=== PATIENT | male | born 1975 | race Hispanic/Latino ===

== ENCOUNTER 2018-04-01 12:46 | Emergency (ER) | payer BC, OTHER ==
[2018-04-01 13:07] LABS: BASOPHILS % (AUTO) 0.3 % (0.0-5.0); EOSINOPHILS % (AUTO) 0.2 % (0.0-8.0); LYMPHOCYTES % (AUTO) 18.8 % (21.0-51.0); MEAN CORPUSCULAR HEMOGLOBIN 30.6 pg (27.0-33.0); MEAN CORPUSCULAR HGB CONC 35.1 g/dL (32.0-36.0); MEAN CORPUSCULAR VOLUME 87.2 fL (79-99); MONOCYTES % (AUTO) 6.5 % (3.0-13.0); NEUTROPHILS % (AUTO) 74.2 % (40.0-77.0); PLATELET COUNT (AUTO) 267 K/uL (130-400); RED BLOOD CELL COUNT(AUTO) 5.04 MIL/uL (4.50-6.20); RED CELL DISTRIBUTION WIDTH 12.9 % (11.0-15.5); WHITE BLOOD COUNT (AUTO) 8.6 K/uL (4.8-10.8)
[2018-04-01 13:17] LABS: POTASSIUM 3.4 mmol/L (3.5-5.1)
[2018-04-01 13:18] LABS: INR 1.08 (0.85-1.15); PARTIAL THROMBOPLASTIN TIME 27.1 SEC (26.3-35.5); PROTHROMBIN TIME 11.3 SEC (9.6-11.6)
[2018-04-01 13:33] LABS: ALBUMIN 4.2 g/dL (3.5-5.0); BILIRUBIN,TOTAL 0.6 mg/dL (0.2-1.0); CREATINE KINASE MB 1.8 ng/mL (0.5-3.6); TOTAL PROTEIN, SERUM 8.4 g/dL (6.0-8.3)
== END 2018-04-01 14:37 | disposition home or self-care (01) ==
LOC: EDH 12:46
DX: R07.89 Other chest pain (principal); M41.9 Scoliosis, unspecified
CPT/HCPCS: 36415; 71045; 80053; 82550; 82553; 84484; 85025; 85610; 85730; 93005

== ENCOUNTER 2022-03-23 18:37 | Emergency (ER) | payer OTHER ==
[~2022-03-23] VITALS: Ht 175.3 cm; Wt 79.4 kg
[2022-03-23 19:10] LABS: BASOPHILS % (AUTO) 0.4 % (0.0-5.0); EOSINOPHILS % (AUTO) 0.6 % (0.0-8.0); HEMATOCRIT 42.9 % (42-54); LYMPHOCYTES % (AUTO) 24.9 % (21.0-51.0); MEAN CORPUSCULAR HEMOGLOBIN 29.2 pg (27.0-33.0); MEAN CORPUSCULAR HGB CONC 33.8 g/dL (32.0-36.0); MEAN CORPUSCULAR VOLUME 86.3 fL (79-99); MONOCYTES % (AUTO) 8.8 % (3.0-13.0); NEUTROPHILS % (AUTO) 64.9 % (40.0-77.0); PLATELET COUNT (AUTO) 278 K/uL (130-400); RED BLOOD CELL COUNT(AUTO) 4.97 MIL/uL (4.50-6.20); RED CELL DISTRIBUTION WIDTH 12.3 % (11.0-15.5); WHITE BLOOD COUNT (AUTO) 8.3 K/uL (4.8-10.8)
[2022-03-23 19:12] LABS: POTASSIUM 3.6 mmol/L (3.5-5.1)
[2022-03-23 19:22] LABS: ALBUMIN 3.9 g/dL (3.5-5.0); BILIRUBIN,TOTAL 0.4 mg/dL (0.2-1.0); TOTAL PROTEIN, SERUM 7.6 g/dL (6.0-8.3)
[2022-03-23 20:20] LABS: ERYTHROCYTE SEDIMENTATION RATE 5 MM/HR (0-15)
[2022-03-23 21:27] LABS: APPEARANCE,URINE Clear (CLEAR); BILIRUBIN,URINE Negative (NEGATIVE); COLOR,URINE Yellow (YELLOW); GLUCOSE, URINE (UA) Negative (NEGATIVE); KETONES,URINE Trace mg/dL (NEGATIVE); LEUKOCYTE ESTERASE ,URINE Negative (NEGATIVE); NITRATE,URINE Negative (NEGATIVE); OCCULT BLOOD,URINE Negative (NEGATIVE); PROTEIN,URINE Negative (NEGATIVE)
[2022-03-23 21:35] LABS: AMPHET/METH SCREEN,URINE NEGATIVE (NEGATIVE); BARBITURATE SCREEN, URINE NEGATIVE (NEGATIVE); BENZODIAZEPINES SCREEN,URINE NEGATIVE (NEGATIVE); CANNABINOID SCREEN,URINE POSITIVE (NEGATIVE); COCAINE SCREEN,URINE NEGATIVE (NEGATIVE); OPIATE SCREEN,URINE NEGATIVE (NEGATIVE); PHENCYCLIDINE SCREEN,URINE NEGATIVE (NEGATIVE)
[2022-03-23 22:30] LABS: PHOSPHORUS 3.9 mg/dL (2.5-4.9)
[2022-03-23 23:08] LABS: GLUCOSE, CSF 60 mg/dL (40-70); TOTAL PROTEIN, CSF 72 mg/dL (15-45)
[2022-03-23 23:09] LABS: CRP QUANTITATIVE < 2.00 mg/L (0.00-9.0)
[2022-03-23 23:29] LABS: CSF TUBE NUMBER 1
[2022-03-23 23:30] LABS: APPEARANCE,CSF CLEAR (CLEAR); COLOR,CSF COLORLESS (COLORLESS); RED BLOOD CELL1,CSF 1 CMM (0-0); WHITE BLOOD CELL1,CSF 16 CMM (0-5)
[2022-03-23 23:34] LABS: LYMPHOCYTES1,CSF 84 %; MONOCYTES1,CSF 3 %; NEUTROPHILS1,CSF 13 %
[2022-03-24 05:04] VITALS: BP 142/83
== END 2022-03-24 06:14 | disposition short-term general hospital (02) ==
LOC: EDH 18:37
DX: G61.0 Guillain-Barre syndrome (principal); R53.1 Weakness; Z20.822 Contact with and (suspected) exposure to COVID-19; I10 Essential (primary) hypertension
CPT/HCPCS: 36415 ×2; 62270; 80053; 80305; 81003; 82607; 82746; 82784; 82945; 83735; 84100; 84157; 84484; 85025; 85651; 86140; 87071; 87205; 87635; 89051; 93005; 99285; C9803

== ENCOUNTER 2023-10-07 06:54 | Observation (INO) | payer BC ==
[2023-10-02 14:47] VITALS: BP 133/89; PULSE 61; RESP 17
[2023-10-02 14:50] LABS: BASOPHILS # (AUTO) 0.03 K/uL (0.00-0.20); BASOPHILS % (AUTO) 0.4 % (0.0-5.0); EOSINOPHILS # (AUTO) 0.09 K/uL (0.00-0.70); EOSINOPHILS % (AUTO) 1.3 % (0.0-8.0); HEMATOCRIT 42.5 % (42-54); IMMATURE GRANULOCYTE ABSOLUTE 0.03 K/uL (0-1); LYMPHOCYTES # (AUTO) 2.8 K/uL (1.0-4.8); LYMPHOCYTES % (AUTO) 42.4 % (21.0-51.0); MEAN CORPUSCULAR HEMOGLOBIN 30.1 pg (27.0-33.0); MEAN CORPUSCULAR HGB CONC 33.4 g/dL (32.0-36.0); MEAN CORPUSCULAR VOLUME 90.2 fL (79-99); MONOCYTES # (AUTO) 0.5 K/uL (0.1-1.0); MONOCYTES % (AUTO) 8.1 % (3.0-13.0); NEUTROPHILS # (AUTO) 3.2 K/uL (1.8-7.7); NEUTROPHILS % (AUTO) 47.4 % (40.0-77.0); PLATELET COUNT (AUTO) 254 K/uL (130-400); RED BLOOD CELL COUNT(AUTO) 4.71 MIL/uL (4.50-6.20); RED CELL DISTRIBUTION WIDTH 12.3 % (11.0-15.5); WHITE BLOOD COUNT (AUTO) 6.7 K/uL (4.8-10.8)
[2023-10-02 15:00] LABS: POTASSIUM 4.3 mmol/L (3.5-5.1)
[~2023-10-07] VITALS: Ht 177.8 cm; Wt 83.5 kg
[2023-10-07] VITALS (30 sets, daily range): BP systolic 101–151; BP diastolic 55–96; PULSE 72–115; RESP 11–22; O2SAT 98
[~2023-10-07 06:54] MED LIST: ALPR1TAB2 PO; HYDR-4068 PO; RABE20TA30 PO
[2023-10-07] MEDS ORDERED: LACTATED RINGERS 1000ML 1,000 ML IV ONE (08:06)
[2023-10-07] MEDS ORDERED: LOSA50TA64 PO (08:16)
[2023-10-07] MEDS: CEFAZOLIN SODIUM 2 GM VIAL ONE ×2 (08:17→11:07)
[2023-10-07] MEDS ORDERED: DEXAMETHASONE SOD PHOSPHATE 10MG/ML 1ML VIAL ONE ×2 (09:30→09:59)
[2023-10-07] MEDS ORDERED: LIDOCAINE PF 100MG/5ML (2%) SYRINGE 5ML ONE (09:30)
[2023-10-07] MEDS ORDERED: SUCCINYLCHOLINE 200MG/10ML SYR ONE (09:30)
[2023-10-07] MEDS ORDERED: GLYCOPYRROLATE 1 MG/5 ML SYRINGE ONE (09:31)
[2023-10-07] MEDS ORDERED: PROPOFOL 10 MG/ML 20ML VIAL IV ONE (09:31)
[2023-10-07] MEDS ORDERED: MIDAZOLAM HCL 1 MG/ML 2ML VIAL ONE (09:31)
[2023-10-07] MEDS ORDERED: ONDANSETRON 4MG INJ ONE ×2 (09:31→14:19)
[2023-10-07] MEDS ORDERED: NEOSTIGMINE 5MG/5ML SYR IV ONE (09:31)
[2023-10-07] MEDS ORDERED: FENTANYL CITRATE PF 50 MCG/1 ML 2ML VIAL ONE (09:32)
[2023-10-07] MEDS ORDERED: ROCURONIUM 10MG/1ML SYR 10 MG/ML ML ONE ×3 (09:32→12:33)
[2023-10-07] MEDS ORDERED: FAMOTIDINE 20MG VIAL IV ONE (10:13)
[2023-10-07] MEDS ORDERED: BUPIVACAINE/PF 0.5% 30ML VIAL ONE (10:36)
[2023-10-07] MEDS ORDERED: FENTANYL CITRATE PF 50 MCG/1 ML 5ML AMP IV ONE ×2 (11:15→12:33)
[2023-10-07] MEDS ORDERED: ESMOLOL HCL 10 MG/ML 10 ML VIAL ONE (13:02)
[2023-10-07] MEDS ORDERED: MEPERIDINE-PF 25 MG/ML SYG ONE ×3 (13:52→14:26)
[2023-10-07] MEDS ORDERED: KETOROLAC 30MG VIAL (30MG/ML) ONE (14:19)
[2023-10-07] MEDS ORDERED: ACETAMINOPHEN 1,000 MG/100 ML VIAL IV ONE (14:26)
[2023-10-07] MEDS ORDERED: ALPRAZOLAM 0.5 MG TABLET PO PRN (14:30)
[2023-10-07] MEDS ORDERED: HYDROCODONE/ACETAMINOPHEN 7.5/325 MG 15 ML UDCUP PO PRN (14:30)
[2023-10-07] MEDS ORDERED: ONDANSETRON 4MG INJ IVP PRN (14:30)
[2023-10-07] MEDS ORDERED: MORPHINE 4 MG SYG IVP PRN (14:30)
[2023-10-07] MEDS ORDERED: PROCHLORPERAZINE 10MG/2ML INJ IV PRN (14:30)
[2023-10-07] MEDS ORDERED: KETOROLAC 30MG VIAL (30MG/ML) IV PRN (14:30)
[2023-10-07] MEDS ORDERED: HYDROCODONE/ACETAMINOPHEN 10/325 MG TAB PO PRN (14:30)
[2023-10-07] MEDS ORDERED: HYDRALAZINE 20MG/ML VIAL IV PRN (14:30)
[2023-10-07] MEDS ORDERED: SCOPOLAMINE HYDROBROMIDE 1 EACH ADH..PATCH TD ONE ×2 (14:30→16:21)
[2023-10-07] MEDS ORDERED: HYDROMORPHONE 1 MG INJ ONE (14:53)
[2023-10-07] MEDS: LACTATED RINGERS 1000ML 1,000 ML IV SCH ×2 (19:17→22:30)
[2023-10-07] MEDS ORDERED: FAMOTIDINE 20MG TAB PO SCH (20:00)
[2023-10-08] VITALS: BP 140/80; PULSE 89; RESP 18
[2023-10-08] MEDS: LACTATED RINGERS 1000ML 1,000 ML IV SCH (03:23)
[2023-10-08 04:00] VITALS: BP 143/83; PULSE 77; RESP 18
[2023-10-08 06:26] VITALS: PULSE 93; RESP 18; O2SAT 97
[2023-10-08 08:00] VITALS: BP 126/86; PULSE 78; RESP 20; O2SAT 98
[2023-10-08] MEDS: ENOXAPARIN SODIUM 30 MG/0.3 ML SQ SCH ×2 (08:59→12:48)
[2023-10-08 12:00] VITALS: BP 139/86; PULSE 78; RESP 20
[2023-10-09] MEDS ORDERED: PANTOPRAZOLE 40 MG TAB DR PO SCH (09:00)
[2023-10-09] MEDS ORDERED: NON-FORMULARY MEDICATION 1 EACH (Rabeprazole Sodium 20 MG) PO SCH (09:00)
== END 2023-10-08 14:00 | disposition home or self-care (01) ==
LOC: DAH 06:54 → INTOOBSV 06:55 → DAHIP 06:55 → DAH 06:55 → 3AH 16:36
PROVIDERS: ADMIT Surgery; ATTEND Surgery
DX: K44.9 Diaphragmatic hernia without obstruction or gangrene (principal); K22.70 Barrett's esophagus without dysplasia; K21.9 Gastro-esophageal reflux disease without esophagitis; G61.0 Guillain-Barre syndrome; I10 Essential (primary) hypertension; F41.9 Anxiety disorder, unspecified
CPT/HCPCS: 80048; 85025; 86850 ×2; 86900 ×2; 86901 ×2; 36415 ×2; 93005; 43282; 96374; 43235; 94760; 96372; 96375; A6260; G0378 ×22; A4663; J7030; J7120 ×2; J3490 ×3; J3010 ×3; J1170; J0330; J1100 ×2; J2710; J2001; J2250; J2704; J2405 ×2; J1885; J0665; J2175 ×3; J0690; G0168; A4649 ×3; A4930 ×2; C1781; A4215; A4223; A4222; A4221; A4600; A4606; J1650; J2270